=== PATIENT | female | born 1955 | race Caucasian/White ===

== ENCOUNTER 2021-04-09 14:21 | Inpatient (IN) | payer OTHER ==
[~2021-04-09] VITALS: Ht 157.5 cm; Wt 46.3 kg
[2021-04-09 14:55] LABS: BASOPHILS % 0.4 % (0.0-1.0); EOSINOPHILS # (AUTO) 0.1 (0.0-0.4); EOSINOPHILS % 0.9 % (0.0-6.0); HEMATOCRIT 42.2 % (34.2-44.1); HEMOGLOBIN 13.4 g/dL (12.0-16.0); LYMPHOCYTES # (AUTO) 1.4 (1.0-3.2); LYMPHOCYTES % 21.2 % (18.0-39.1); MEAN CORPUSCULAR HEMOGLOBIN 28.7 pg (28-32); MEAN CORPUSCULAR HGB CONC 31.8 g/dL (31-35); MEAN CORPUSCULAR VOLUME 90.4 fL (81-99); MONOCYTES # (AUTO) 0.4 (0.2-0.8); MONOCYTES % 5.5 % (4.4-11.3); NEUTROPHILS # (AUTO) 4.9 (2.1-6.9); NEUTROPHILS % 71.9 % (38.7-80.0); PLATELET COUNT 288 x10e3/uL (140-360); RED BLOOD COUNT 4.67 x10e6/uL (3.6-5.1); RED CELL DISTRIBUTION WIDTH 14.6 % (11.7-14.4)
[2021-04-09 15:22] LABS: ALANINE AMINOTRANSFERASE 25 IU/L (0-55); ALBUMIN 3.9 g/dL (3.5-5.0); ALBUMIN/GLOBULIN RATIO 1.4 (0.8-2.0); ALKALINE PHOSPHATASE 92 IU/L (40-150); ANION GAP 16.1 mmol/L (8-16); BLOOD UREA NITROGEN 24 mg/dL (7-26); BUN/CREATININE RATIO 31 (6-25); CALCIUM 9.4 mg/dL (8.4-10.2); CARBON DIOXIDE 26 mmol/L (22-29); CHLORIDE 102 mmol/L (98-107); CREATINE KINASE 76 IU/L (29-168); CREATININE, SERUM 0.78 mg/dL (0.57-1.11); EST GLOMERULAR FILTRATION RATE 74 ML/MIN (60-); GLUCOSE 91 mg/dL (74-118); POTASSIUM 4.1 mmol/L (3.5-5.1); SODIUM 140 mmol/L (136-145)
[2021-04-09] MEDS: SODIUM CHLORIDE 0.9% 1000ML 1,000 ML IV SCH (18:17)
[2021-04-09] MEDS ORDERED: SODIUM CHLORIDE 0.9% 50ML 50 ML ONE (18:20)
[2021-04-09] MEDS ORDERED: IOPAMIDOL 370 MG/ML 200 ML INFUS..BTL INJ ONE (18:21)
[2021-04-09] MEDS ORDERED: ROPINIROLE HCL0.5 MG PO (20:57)
[2021-04-09] MEDS ORDERED: LISINOPRIL10 MG PO (20:57)
[2021-04-09] MEDS ORDERED: ESCITALOPRAM OXA5 MG PO (20:57)
[2021-04-09] MEDS ORDERED: BUPROPION XL300 MG PO (20:57)
[2021-04-09] MEDS ORDERED: TRAMADOL-ACETAMINOPH PO (20:57)
[2021-04-09] MEDS ORDERED: ATIVAN1 MG PO (20:57)
[2021-04-09] MEDS ORDERED: ESZOPICLONE3 MG PO (20:57)
[2021-04-09] MEDS ORDERED: NP THYROID120 MG PO (20:57)
[2021-04-09 22:46] VITALS: BP 140/99
[2021-04-09] MEDS: ENOXAPARIN SOD INJ 40 MG/0.4 ML SYR SC SCH (23:00)
[2021-04-09] MEDS ORDERED: ESZOPICLONE 3 MG PO SCH (23:15)
[2021-04-09] MEDS ORDERED: TRAMADOL/APAP 37.5MG-325MG TAB PO PRN (23:15)
[2021-04-09 23:31] VITALS: BP 140/99
[2021-04-09] MEDS: LORAZEPAM 1 MG TAB PO PRN (23:43)
[2021-04-09] MEDS: ESCITALOPRAM OXALATE 10 MG TAB PO SCH (23:45)
[2021-04-09] MEDS: ROPINIROLE HCL 0.25 MG TAB PO SCH (23:45)
[2021-04-09 23:53] VITALS: BP 132/65
[2021-04-10] VITALS (7 sets, daily range): BP systolic 132–151; BP diastolic 65–77
[2021-04-10 00:56] LABS: CREATINE KINASE 57 IU/L (29-168)
[2021-04-10] MEDS: MORPHINE SULFATE INJ 2 MG/ML SYR IV PRN ×5 (01:05→22:20)
[2021-04-10] MEDS: ONDANSETRON HCL INJ 2MG/ML 2ML 2 MG/ML VIAL IV PRN ×5 (01:08→22:20)
[2021-04-10 01:10] LABS: CLARITY,URINE CLEAR (CLEAR); COLOR,URINE YELLOW (YELLOW); KETONES,URINE NEGATIVE (NEGATIVE); LEUKOCYTE ESTERASE ,URINE NEGATIVE (NEGATIVE); NITRITE,URINE NEGATIVE (NEGATIVE); PROTEIN,URINE DIPSTICK NEGATIVE (NEGATIVE); URINE UROBILINOGEN 0.2 mg/dL (0.2 - 1)
[2021-04-10 01:11] LABS: BACTERIA,URINE RARE /HPF; EPITHELIAL CELLS,URINE RARE /LPF; WBC,URINE (MAN) 0-5 /HPF (0-5)
[2021-04-10] MEDS: SODIUM CHLORIDE 0.9% 1000ML 1,000 ML IV SCH ×3 (05:03→18:00)
[2021-04-10] MEDS ORDERED: BENZONATATE 100 MG CAP PO PRN (07:00)
[2021-04-10] MEDS ORDERED: THYROID 60 MG TAB PO SCH (07:30)
[2021-04-10 07:56] LABS: CREATINE KINASE 59 IU/L (29-168)
[2021-04-10] MEDS: ENOXAPARIN SOD INJ 40 MG/0.4 ML SYR SC SCH ×2 (09:00→21:40)
[2021-04-10] MEDS: LISINOPRIL 20 MG TAB PO SCH (09:00)
[2021-04-10] MEDS: BUPROPION HCL 150 MG TABCR PO SCH (09:00)
[2021-04-10] MEDS: GABAPENTIN 300 MG CAP PO SCH (19:40)
[2021-04-10] MEDS ORDERED: ZOLPIDEM TARTRATE 10 MG TAB PO PRN (21:00)
[2021-04-10] MEDS: ESCITALOPRAM OXALATE 10 MG TAB PO SCH (22:50)
[2021-04-10] MEDS: ROPINIROLE HCL 0.25 MG TAB PO SCH (22:50)
[2021-04-10] MEDS: LORAZEPAM 1 MG TAB PO PRN (22:55)
[2021-04-11] VITALS: BP 140/73
[2021-04-11] MEDS: SODIUM CHLORIDE 0.9% 1000ML 1,000 ML IV SCH ×2 (02:00→08:37)
[2021-04-11 04:00] VITALS: BP 126/67
[2021-04-11] MEDS ORDERED: THYROID 60 MG TAB PO SCH (06:00)
[2021-04-11 07:16] LABS: BASOPHILS % 0.7 % (0.0-1.0); EOSINOPHILS # (AUTO) 0.1 (0.0-0.4); EOSINOPHILS % 3.3 % (0.0-6.0); HEMATOCRIT 38.5 % (34.2-44.1); HEMOGLOBIN 11.8 g/dL (12.0-16.0); LYMPHOCYTES # (AUTO) 1.5 (1.0-3.2); LYMPHOCYTES % 35.6 % (18.0-39.1); MEAN CORPUSCULAR HEMOGLOBIN 29.2 pg (28-32); MEAN CORPUSCULAR HGB CONC 30.6 g/dL (31-35); MEAN CORPUSCULAR VOLUME 95.3 fL (81-99); MONOCYTES # (AUTO) 0.5 (0.2-0.8); MONOCYTES % 10.7 % (4.4-11.3); NEUTROPHILS # (AUTO) 2.1 (2.1-6.9); NEUTROPHILS % 49.5 % (38.7-80.0); PLATELET COUNT 221 x10e3/uL (140-360); RED BLOOD COUNT 4.04 x10e6/uL (3.6-5.1); RED CELL DISTRIBUTION WIDTH 14.9 % (11.7-14.4)
[2021-04-11 07:54] LABS: ANION GAP 9.1 mmol/L (8-16); CALCIUM 8.2 mg/dL (8.4-10.2); CREATININE, SERUM 0.63 mg/dL (0.57-1.11); MAGNESIUM 1.7 MG/DL (1.3-2.1); POTASSIUM 4.1 mmol/L (3.5-5.1)
[2021-04-11 08:18] VITALS: BP 126/67
[2021-04-11 08:19] VITALS: BP 126/67
[2021-04-11 08:29] VITALS: BP 121/63
[2021-04-11] MEDS: BUPROPION HCL 150 MG TABCR PO SCH (08:33)
[2021-04-11] MEDS: GABAPENTIN 300 MG CAP PO SCH (08:33)
[2021-04-11] MEDS: ENOXAPARIN SOD INJ 40 MG/0.4 ML SYR SC SCH (08:34)
[2021-04-11] MEDS: LISINOPRIL 20 MG TAB PO SCH (08:34)
[2021-04-11 11:20] VITALS: BP 134/67
[2021-04-11] MEDS ORDERED: KETOROLAC TROME10 MG PO (12:08)
[2021-04-11] MEDS ORDERED: ELIQUIS5 MG PO (12:09)
[2021-04-11] MEDS ORDERED: ABILIFY2 MG PO (12:10)
[2021-04-11] MEDS ORDERED: KETOROLAC TROMETHAMINE 30 MG/ML VIAL IV ONE (12:45)
== END 2021-04-11 14:12 | disposition home or self-care (01) | DRG 176 ==
LOC: ER 14:41 → ERHOLD 18:00 → MED/SURG 22:43 → OBSVTOIN 04-11 09:07
PROVIDERS: ADMIT Family Medicine; ATTEND Family Medicine
DX: I26.93 Single subsegmental thrombotic pulmonary embolism without acute cor pulmonale (principal); F41.1 Generalized anxiety disorder; E03.9 Hypothyroidism, unspecified; F32.9 Major depressive disorder, single episode, unspecified; J22 Unspecified acute lower respiratory infection; B97.4 Respiratory syncytial virus as the cause of diseases classified elsewhere; M50.90 Cervical disc disorder, unspecified, unspecified cervical region; Z88.0 Allergy status to penicillin; Z91.040 Latex allergy status; Z20.822 Contact with and (suspected) exposure to COVID-19; Z83.3 Family history of diabetes mellitus; Z82.49 Family history of ischemic heart disease and other diseases of the circulatory system
CPT/HCPCS: 36415; 70450; 71045; 71260; 72125; 80048; 80053; 81001; 82550; 82553; 83735; 84484; 85025; 93005; 93306; 93880; 93970; 99284; G0378; J1650; J1885; J2270; J2405; J7030; Q9967; U0002

== ENCOUNTER 2021-05-23 11:28 | Observation (INO) | payer OTHER ==
[~2021-05-23] VITALS: Ht 157.5 cm; Wt 46.7 kg
[~2021-05-23 11:28] MED LIST: ABILIFY2 MG PO; ATIVAN1 MG PO; BUPROPION XL300 MG PO; ELIQUIS5 MG PO; ESCITALOPRAM OXA5 MG PO; ESZOPICLONE3 MG PO; KETOROLAC TROME10 MG PO; LISINOPRIL10 MG PO; NP THYROID120 MG PO; ROPINIROLE HCL0.5 MG PO; TRAMADOL-ACETAMINOPH PO
[2021-05-23 13:06] VITALS: BP 133/55
[2021-05-23 13:12] VITALS: BP 133/55
[2021-05-23] MEDS ORDERED: [UNRECOGNIZED DRUG - OTHER] PO PRN (13:30)
[2021-05-23] MEDS ORDERED: ACETAMINOPHEN 325 MG TAB PO PRN (13:30)
[2021-05-23] MEDS ORDERED: ASPIRIN 81 MG CHEW TAB PO ONE ×2 (13:30)
[2021-05-23 14:51] LABS: CREATINE KINASE MB 1.8 ng/mL (0-5.0)
[2021-05-23 15:17] VITALS: BP 122/45
[2021-05-23] MEDS: APIXABAN 5 MG TABLET PO SCH (16:40)
[2021-05-23] MEDS: TRAMADOL/APAP 37.5MG-325MG TAB PO PRN (17:29)
[2021-05-23] MEDS: HYDROCODONE/APAP 7.5MG-325MG 1 EA TAB PO PRN (18:43)
[2021-05-23 20:28] VITALS: BP 138/85
[2021-05-23] MEDS: ONDANSETRON HCL INJ 2MG/ML 2ML 2 MG/ML VIAL IV PRN (20:59)
[2021-05-23 21:00] VITALS: BP 138/85
[2021-05-23] MEDS ORDERED: ZOLPIDEM TARTRATE 5 MG TAB PO SCH (21:00)
[2021-05-23] MEDS ORDERED: ESZOPICLONE 3 MG PO SCH (21:00)
[2021-05-23] MEDS ORDERED: LORAZEPAM 1 MG TAB PO PRN (21:00)
[2021-05-23] MEDS ORDERED: ESCITALOPRAM OXALATE 10 MG TAB PO SCH (21:00)
[2021-05-23] MEDS ORDERED: ROPINIROLE HCL 0.25 MG TAB PO SCH (21:00)
[2021-05-23] MEDS ORDERED: NON-FORMULARY MEDICATION (Ropinirole Hcl 0.5 MG) PO SCH (21:00)
[2021-05-23] MEDS ORDERED: NON-FORMULARY MEDICATION (Escitalopram Oxalate 5 MG) PO SCH (21:00)
[2021-05-23 22:32] LABS: ALBUMIN 2.5 g/dL (3.5-5.0); ALBUMIN/GLOBULIN RATIO 1.4 (0.8-2.0); ANION GAP 11.6 mmol/L (8-16); CREATININE, SERUM 0.56 mg/dL (0.57-1.11); POTASSIUM 4.6 mmol/L (3.5-5.1)
[2021-05-23 22:35] LABS: CALCIUM 6.6 mg/dL (8.4-10.2)
[2021-05-23] MEDS ORDERED: SODIUM CHLORIDE 0.9% 50ML 50 ML ONE (23:29)
[2021-05-23] MEDS ORDERED: IOPAMIDOL 370 MG/ML 200 ML INFUS..BTL INJ ONE (23:29)
[2021-05-24] VITALS (7 sets, daily range): BP systolic 118–138; BP diastolic 62–75
[2021-05-24] MEDS: HYDROCODONE/APAP 7.5MG-325MG 1 EA TAB PO PRN ×3 (00:23→16:48)
[2021-05-24 05:16] LABS: BASOPHILS % 0.3 % (0.0-1.0); EOSINOPHILS # (AUTO) 0.1 (0.0-0.4); EOSINOPHILS % 1.5 % (0.0-6.0); HEMATOCRIT 35.3 % (34.2-44.1); HEMOGLOBIN 11.5 g/dL (12.0-16.0); LYMPHOCYTES # (AUTO) 1.9 (1.0-3.2); LYMPHOCYTES % 29.6 % (18.0-39.1); MEAN CORPUSCULAR HEMOGLOBIN 29.9 pg (28-32); MEAN CORPUSCULAR HGB CONC 32.6 g/dL (31-35); MEAN CORPUSCULAR VOLUME 91.9 fL (81-99); MONOCYTES # (AUTO) 0.6 (0.2-0.8); MONOCYTES % 8.5 % (4.4-11.3); NEUTROPHILS # (AUTO) 3.9 (2.1-6.9); NEUTROPHILS % 59.8 % (38.7-80.0); PLATELET COUNT 242 x10e3/uL (140-360); RED BLOOD COUNT 3.84 x10e6/uL (3.6-5.1)
[2021-05-24 05:47] LABS: ALBUMIN 3.1 g/dL (3.5-5.0); ALBUMIN/GLOBULIN RATIO 1.2 (0.8-2.0); ANION GAP 11.2 mmol/L (8-16); CALCIUM 8.3 mg/dL (8.4-10.2); CHOL/HDL RATIO 2.9 (3.0-3.6); CREATININE, SERUM 0.65 mg/dL (0.57-1.11); POTASSIUM 4.2 mmol/L (3.5-5.1)
[2021-05-24] MEDS ORDERED: THYROID 60 MG TAB PO SCH (06:00)
[2021-05-24 06:10] LABS: THYROID STIMULATING HORMONE 0.666 uIU/mL (0.350-4.940)
[2021-05-24 06:18] LABS: CREATINE KINASE MB 7.2 ng/mL (0-5.0)
[2021-05-24] MEDS ORDERED: REGADENOSON 0.4 MG/5 ML SYR IV ONE (08:31)
[2021-05-24] MEDS ORDERED: ASPIRIN 81 MG ENTERIC COATED PO SCH (09:00)
[2021-05-24] MEDS ORDERED: THYROID PORK 120 MG PO SCH (09:00)
[2021-05-24] MEDS ORDERED: LISINOPRIL 20 MG TAB PO SCH (09:00)
[2021-05-24] MEDS ORDERED: NON-FORMULARY MEDICATION (Bupropion Hcl (Bupropion Xl) 300 MG) PO SCH (09:00)
[2021-05-24] MEDS ORDERED: BUPROPION HCL 150 MG TABCR PO SCH (09:00)
[2021-05-24] MEDS: APIXABAN 5 MG TABLET PO SCH ×2 (10:47→16:41)
[2021-05-24] MEDS: GABAPENTIN 100 MG CAP PO SCH ×2 (10:47→16:41)
[2021-05-24] MEDS ORDERED: OYST-CAL-D 500MG TABLET PO NR (13:00)
[2021-05-24] MEDS ORDERED: DIAZEPAM 5 MG TAB PO PRN (13:00)
[2021-05-24] MEDS: ONDANSETRON HCL INJ 2MG/ML 2ML 2 MG/ML VIAL IV PRN (16:48)
[2021-05-24] MEDS ORDERED: ONDANSETRON HCL 4 MG ORAL DISINTEGRATING TAB PO PRN (18:45)
[2021-05-24] MEDS: TRAMADOL/APAP 37.5MG-325MG TAB PO PRN (19:37)
== END 2021-05-24 20:54 | disposition home or self-care (01) ==
LOC: MED/SURG2 12:51
PROVIDERS: ADMIT Family Medicine; ATTEND Family Medicine
DX: R07.89 Other chest pain (principal); I10 Essential (primary) hypertension; M79.7 Fibromyalgia; Z20.822 Contact with and (suspected) exposure to COVID-19; E03.9 Hypothyroidism, unspecified; Z86.711 Personal history of pulmonary embolism; Z79.01 Long term (current) use of anticoagulants; M50.31 Other cervical disc degeneration, high cervical region; M65.88 Other synovitis and tenosynovitis, other site
CPT/HCPCS: 36415 ×2; 71260; 72141; 78452; 80053 ×2; 80061; 82550 ×2; 82553 ×2; 83735; 84443; 84484 ×2; 85025; 93005; 93017; 93306; 93970 ×2; A9502; G0378 ×2; J2405 ×2; J2785; Q9967; U0002

== ENCOUNTER 2022-03-24 15:03 | Emergency (ER) | payer MEDICARE, OTHER ==
[~2022-03-24] VITALS: Ht 157.5 cm; Wt 46.7 kg
[2022-03-24] MEDS ORDERED: ACETAMINOPHEN 325 MG TAB PO ONE (15:30)
[2022-03-24 15:40] LABS: BASOPHILS % 0.8 % (0.0-1.0); EOSINOPHILS # (AUTO) 0.3 (0.0-0.4); EOSINOPHILS % 5.2 % (0.0-6.0); HEMOGLOBIN 12.7 g/dL (12.0-16.0); LYMPHOCYTES # (AUTO) 1.8 (1.0-3.2); LYMPHOCYTES % 37.1 % (18.0-39.1); MEAN CORPUSCULAR HEMOGLOBIN 28.3 pg (28-32); MEAN CORPUSCULAR VOLUME 91.3 fL (81-99); MONOCYTES # (AUTO) 0.4 (0.2-0.8); MONOCYTES % 8.7 % (4.4-11.3); NEUTROPHILS # (AUTO) 2.3 (2.1-6.9); NEUTROPHILS % 48.2 % (38.7-80.0); PLATELET COUNT 276 x10e3/uL (140-360); RED BLOOD COUNT 4.49 x10e6/uL (3.6-5.1)
[2022-03-24 15:57] VITALS: BP 129/98
[2022-03-24 16:14] LABS: PHENCYCLIDINE SCREEN,URINE NEGATIVE (NEGATIVE)
[2022-03-24 16:15] LABS: AMPHETAMINES SCREEN,URINE NEGATIVE (NEGATIVE); BENZODIAZEPINES SCREEN,URINE POSITIVE (NEGATIVE)
[2022-03-24] MEDS ORDERED: SODIUM CHLORIDE 0.9% 1000ML 1,000 ML IV ONE (16:15)
[2022-03-24 16:17] LABS: CLARITY,URINE CLOUDY (CLEAR); COLOR,URINE YELLOW (YELLOW); KETONES,URINE NEGATIVE (NEGATIVE); LEUKOCYTE ESTERASE ,URINE 2+ (NEGATIVE); NITRITE,URINE POSITIVE (NEGATIVE); PROTEIN,URINE DIPSTICK NEGATIVE (NEGATIVE); URINE UROBILINOGEN 0.2 mg/dL (0.2 - 1)
[2022-03-24] MEDS ORDERED: SODIUM CHLORIDE 0.9% 1000ML 1,000 ML ONE (16:17)
[2022-03-24 16:18] LABS: ALBUMIN 3.7 g/dL (3.5-5.0); ALBUMIN/GLOBULIN RATIO 1.2 (0.8-2.0); ANION GAP 15.2 mmol/L (8-16); CALCIUM 8.8 mg/dL (8.4-10.2); CREATININE, SERUM 0.71 mg/dL (0.57-1.11); POTASSIUM 4.2 mmol/L (3.5-5.1)
[2022-03-24 16:27] LABS: WBC,URINE (MAN) >50 /HPF (0-5)
[2022-03-24 16:28] LABS: BACTERIA,URINE MANY /HPF; EPITHELIAL CELLS,URINE FEW /LPF; RENAL EPITHELIAL CELLS,URINE FEW; TRANSITIONAL EPI CELLS,URINE FEW
[2022-03-24] MEDS ORDERED: IBUPROFEN 600 MG TAB PO NR (17:58)
[2022-03-24] MEDS ORDERED: MOTRIN200 MG PO (18:05)
[2022-03-24] MEDS ORDERED: MACROBID 100 M100 MG PO (18:05)
[2022-03-24] MEDS ORDERED: ONDANSETRON ODT4 MG PO (18:05)
[2022-03-24] MEDS ORDERED: ONDANSETRON HCL 4 MG ORAL DISINTEGRATING TAB PO NR (18:15)
== END 2022-03-24 18:20 | disposition home or self-care (01) ==
LOC: ER 15:09
DX: F07.81 Postconcussional syndrome (principal); I95.1 Orthostatic hypotension; W01.0XXA Fall on same level from slipping, tripping and stumbling without subsequent striking against object, initial encounter; Y92.531 Health care provider office as the place of occurrence of the external cause; I10 Essential (primary) hypertension; F41.9 Anxiety disorder, unspecified; M79.7 Fibromyalgia; Z86.718 Personal history of other venous thrombosis and embolism
CPT/HCPCS: 36415; 70450; 71260; 72125; 74177; 80053; 80307; 81001; 83880; 84484; 85025; 93005; 99284; J7030; Q0162